=== PATIENT | male | born 1975 | race Caucasian/White ===

== ENCOUNTER 2021-08-12 06:13 | Day surgery (SDC) | payer BC ==
[~2021-08-12] VITALS: Ht 185.4 cm; Wt 107.0 kg
[~2021-08-12 06:13] MED LIST: ASPI-630 PO; CETI10TA74 PO; CLOP75TA PO; DEXT30CA6 PO; HYDROmorphone 2 MG/ML VIAL IVP PRN; IV RINGERS,LACTATED 1000ML 1,000 ML IV SCH; LAMO25TA9 PO; LOPE-101 PO; MORPHINE SULFATE 2 MG/ML INJ. IVP PRN; MULT-496 PO; OLME40TA12 PO; OMEP20TA8 PO; PANT40TA77 PO; PROCHLORPERAZINE 10 MG/2 ML VIAL. IVP PRN; fentaNYL PF VIAL 100 MCG/2 ML VIAL IVP PRN
[2021-08-12 06:52] VITALS: BP 142/81
[2021-08-12] MEDS ORDERED: LIDOCAINE 2% PF 5 ML VIAL. ONE (06:58)
[2021-08-12] MEDS ORDERED: PROPOFOL 10 MG/ML (20ML) VIAL. IV ONE ×2 (06:58→08:29)
[2021-08-12] MEDS ORDERED: fentaNYL PF VIAL 250 MCG/5 ML VIAL ONE (06:59)
[2021-08-12] MEDS ORDERED: MIDAZOLAM HCL/PF 2 MG/2 ML VIAL. ONE (06:59)
[2021-08-12] MEDS ORDERED: ROCURONIUM 50 MG/5 ML VIAL. ONE (07:01)
[2021-08-12] MEDS ORDERED: EPINEPHrine VIAL 30 MG/30 ML VIAL ONE (07:33)
[2021-08-12] MEDS ORDERED: LIDOCAINE 1% Multi-Dose 20 ML VIAL. ONE (07:33)
--- NOTE | 2021-08-12 07:42 | PDOC1 ---
History and Physical Date of Service: DOS: DATE: 08/12/21 TIME: :22 Chief Complaint: Chief Complain: ankle pain History of Present Illness: HPI: 46-year-old male with past medical history of TIA in 2006, hypertension, former smoker for 30 years but quit about a year ago, sleep apnea and GERD who is on- call to the OR for surgery of his ankle. Patient currently denies any fevers, chest pain, abdominal pain, dysuria or hematuria. Past Medical/Surgical History: PMH/PSH: Past medical history: TIMOTEO currently on CPAP, history of TIA in 2006, GERD, hypertension, osteochondritis of the right talus Past surgical history: Bilateral knee scopes and bilateral ACL repair, left shoulder arthroscopy Allergies: Allergies: Coded Allergies: No Known Drug Allergies (Unverified , 08/12/21) Family History: Family History: Reviewed with no relevant findings Social History: Social History: Former soap smoker for 30 years and quit in the summer 2020, denies any alcohol drug abuse Current Medications: Current Medications Current Medications Fentanyl Citrate (Fentanyl 2ml Vial) 25 mcg PRN Q5MIN PRN IVP MILD PAIN 1-3; Start 08/12/21 at 06:00; Stop 08/12/21 at 20:00 Fentanyl Citrate (Fentanyl 2ml Vial) 50 mcg PRN Q5MIN PRN IVP MODERATE PAIN 4- 6; Start 08/12/21 at 06:00; Stop 08/12/21 at 20:00 Morphine Sulfate (Morphine Sulfate) 1 mg PRN Q10MIN PRN IVP SEVERE PAIN 7-10; Start 08/12/21 at 06:00; Stop 08/12/21 at 20:00 Ringer's Solution 1,000 ml @ 30 mls/hr Q24H IV Last administered on 08/12/21at 07:04; Start 08/12/21 at 06:00; Stop 08/12/21 at 17:59 Hydromorphone HCl (Dilaudid) 0.5 mg PRN Q10MIN PRN IVP SEVERE PAIN 7-10, 2nd CHOICE; Start 08/12/21 at 06:00; Stop 08/12/21 at 20:00 Prochlorperazine Edisylate (Compazine) 5 mg PACU PRN PRN IVP NAUSEA, MRX1; Start 08/12/21 at 06:00; Stop 08/12/21 at 20:00 Cefazolin Sodium/ Dextrose 50 ml @ 100 mls/hr 1X PREOP PRN IV PRIOR TO PROCEDURE; Start 08/12/21 at 06:00; Stop 08/12/21 at 18:00 Propofol (Diprivan) 200 mg STK-MED ONCE IV ; Start 08/12/21 at 06:58; Stop 08/12/21 at 06:58; Status DC Lidocaine HCl (Lidocaine Pf 2% Vial) 5 ml STK-MED ONCE .ROUTE ; Start 08/12/21 at 06:58; Stop 08/12/21 at 06:58; Status DC Midazolam HCl (Versed) 2 mg STK-MED ONCE .ROUTE ; Start 08/12/21 at 06:59; Stop 08/12/21 at 06:59; Status DC Fentanyl Citrate (Fentanyl 5ml Vial) 250 mcg STK-MED ONCE .ROUTE ; Start 07/23 10/12 at 06:59; Stop 08/12/21 at 06:59; Status DC Rocuronium Williamson (Zemuron) 50 mg STK-MED ONCE .ROUTE ; Start 08/12/21 at 0 7:01; Stop 08/12/21 at 07:01; Status DC Active Scripts Active Reported Daily Value (Multivitamin) 1 Each Tablet 1 Each PO DAILY Lamotrigine 25 Mg Tablet 75 Mg PO DAILY07 Adderall Xr 30 Mg Capsule (Dextroamphetamine/Amphetamine) 30 Mg Cap.er.24h 30 Mg PO DAILY Pantoprazole Sodium (Pantoprazole Sodium) 40 Mg Tablet.dr 40 Mg PO DAILYAC Benicar (Olmesartan Medoxomil) 40 Mg Tablet 40 Mg PO DAILY Clopidogrel (Clopidogrel Bisulfate) 75 Mg Tablet 75 Mg PO DAILY Aspirin 81 Mg Tab.chew 81 Mg PO DAILY Zyrtec (Cetirizine Hcl) 10 Mg Tablet 10 Mg PO DAILY Omeprazole 20 Mg Tablet. 20 Mg PO DAILY Imodium A-D (Loperamide HCl) 2 Mg Capsule 2 Mg PO PRN PRN ROS: Review of Systems Review of System REVIEW OF SYSTEMS: GENERAL: Denies weakness SKIN: No bruising, hair changes or rashes. EYES: No blurred, double or loss of vision. NOSE AND THROAT: No history of nosebleeds, hoarseness or sore throat. HEART: No history of palpitations, chest pain or shortness of breath on exertion. LUNGS: Denies cough, hemoptysis, wheezing or shortness of breath. GASTROINTESTINAL: Denies changes in appetite, nausea, vomiting, diarrhea or constipation. GENITOURINARY: No history of frequency, urgency, hesitancy or nocturia. NEUROLOGIC: Denies history of numbness, tingling, or tremor. PSYCHIATRIC: No history of panic, anxiety or depression. ENDOCRINE: No history of heat or cold intolerance, polyuria or polydipsia. EXTREMITIES: Denies joint pain, pain on walking or stiffness. Physical Exam: Vital Signs: Vital Signs Date Time Temp Pulse Resp B/P (MAP) Pulse Ox O2 Delivery O2 Flow Rate FiO2 08/12/21 07:01 98.2 96 14 142/81 97 Room Air 98.2 Physcial Exam: GEN: No apparent distress. Alert and oriented HEENT: Normal cephalic, atraumatic, external auditory canals are patent EYES: Extraocular muscles are intact, pupil are equally round and reactive to light and accommodation MUSCULOSKELETAL: Well developed , well nourished, good range of motion ENDOCRINE: No thyromegaly was palpated LYMPHATICS: No cervical chain or axillary nodes were noted HEMATOPOIETIC: No bruising NECK: Supple, no JVD, no thyromegaly was noted LUNGS: Clear to auscultation in all lung mares without rhonchi or wheezing HEART: RRR, S!, S2 present. Peripheral pulses intact, no obvious murmurs noted ABDOMEN: Soft, nontender. Positive bowel sounds, no organomegaly, normal bowel sounds EXTREMITIES: Without clubbing, cyanosis, or edema. Pedal pulses intact. Negative Homans sign NEUROLOGIC: Normal speech and tone. A&O x 3, moves all extremities, no obvious focal deficits PSYCHIATRIC: Normal affect, normal mood. Stable SKIN: No ulcerations or rashes, good skin turgor, no jaundice VASCULAR: Good capillary refill, neurovascular bundle appears to be intact Labs: Labs: No recent labs to review Images: Images Pending ankle x-ray Assessment/Plan Assessment/Plan 46 male coming in for right ankle repair for his osteochondritis of the right talus Admit to the OR for surgery with Kiran Boss score of 0.1% low risk for CO or cardiac arrest Aspirin and Plavix has been held for 1 week Possible nerve block for analgesia will defer to anesthesia and primary surgeon Anticipate for discharge from the PACU Please call hospitalist service for any questions Justifications for Admission Other Justification BENIGNO LE MD Aug 12, 2021 07:42
--- NOTE | 2021-08-12 07:47 | RAD ---
XR EXAM OF ANKLE_RIGHT 3VIEWS History: Reason: PRE OP SURGERY AT 0730 / Spl. Instructions: / History: Technique: 3 views right ankle Comparison: None. Findings: No dislocation. No acute fracture. Mild ankle degenerative changes. Dystrophic calcifications posteri or to the distal tibia. Prominence of the anterior talus, can be seen with anterior ankle impingement morphology. Os trigonum. Impression: 1. Mild right ankle DJD. Electronically signed by: Aries Barton DO (08/12/2021 7:45 AM) [id number]
[2021-08-12] MEDS ORDERED: DEXAMETHASONE SOD PHOS 4 MG/ML VIAL ONE (07:59)
[2021-08-12] MEDS ORDERED: ONDANSETRON PF 4 MG/2 ML VIAL. ONE (07:59)
[2021-08-12] MEDS ORDERED: DEXMEDETOMIDINE 200 MCG/2 ML VIAL. IV ONE (08:00)
[2021-08-12] MEDS ORDERED: SEVOFLURANE > 120 MINUTES. IH ONE (08:29)
[2021-08-12] MEDS ORDERED: PHENYLEPHRINE 10 MG/ML VIAL. ONE (08:29)
[2021-08-12] MEDS ORDERED: 0.9 % SODIUM CHLORIDE 20 ML VIAL. IJ ONE (08:31)
[2021-08-12] MEDS ORDERED: HYDROmorphone 2 MG/ML VIAL ONE (08:56)
[2021-08-12] MEDS ORDERED: KETOROLAC 30 MG/ML VIAL. ONE (09:44)
[2021-08-12] MEDS ORDERED: BUPIVACAINE MPF 0.25% 30 ML VIAL. ONE (09:55)
[2021-08-12] MEDS ORDERED: fentaNYL PF VIAL 100 MCG/2 ML VIAL ONE ×2 (10:11→11:17)
--- NOTE | 2021-08-12 10:21 | PDOC4 ---
OPERATIVE NOTE Date: Date: Aug 12, 2021 Pre-Op Diagnosis: Right ankle arthritis, ATFL insufficiency, grade 1 OCD lesion with intact cartilage at the central lateral talar dome Post-Op Diagnosis: Same as above Procedure Performed: Right ankle scope with exostectomy, extensive debridement, Brostrm Reece, retrograde drilling and backfilling with BMA and DBM allograft Surgeon: Jacob Cardoso DPM Anesthesia Type: General Blood Loss: 5 cc Specimans Obtained: None Findings: Extensive ankle synovitis, proliferative exocytosis at the distal tibial plafond and dorsal talar neck/head, remodeled avulsion fracture/soft tissue ossification along the ATFL. There was no talar dome cartilage delamination or deficit upon probing and examination. Complications: None Operative Note: Under mild sedation, patient was brought into the operating room and placed on the operating table in the supine position. A formal timeout was performed to confirm patient's identity, procedure and procedure site. Following general anesthesia and preoperative IV antibiotics, a well-padded right thigh tourniquet was applied. Patient was then positioned in a lazy lateral decubitus position with an aggressive ipsilateral hip bump. The right lower extremity was then scrubbed, prepped and draped using aseptic techniques. The right lower extremity was exsanguinated and the tourniquet was inflated to 250 millimercury. Attention was directed to the anterior aspect of the right ankle where a stab incision was created over the medial gutter. This incision was bluntly dissected and dilated with a hemostat. Blunt obturator was slided through the cannula and introduced to the ankle joint. An obturator was withdrawn and the camera was inserted. Primary survey was performed. A 4 mm, 30 degree camera was then utilized to localize the lateral incision. Again a stab incision was created over the lateral gutter. Blunt dissection was carried out down to the capsule which was penetrated. A cannula and blunt obturator were then int roduced laterally into the joint. The obturator was removed and a 3.5mm shaver was inserted into the joint. At this time, we noted a significant synovitis invaginated into the ankle. There were mild to moderate proliferative exostosis to the distal tibial plafond and dorsal talar neck/head at the medial aspect of the ankle joint. Using a high-speed 3.5 millimeter shaver, all the aforementioned soft tissue invagination was debrided with care to protect the dorsal superficial neurovascular bundle. A 3.5 mm bur was used to excise and debride the exostosis until passive ankle range of motion was free from impingement. Then a final joint survey was unremarkable for OCD/cartilage deficit, or anterior ankle joint impingement. Under intraoperative x-ray, a 2.4 mm guidepin was introduced from the distal medial malleolus aiming towards the central lateral talar dome with care not to puncture through the articular cartilage. Then 1 cc of allograft DBM was mixed with 1 cc of PRP centrifuged from 40 cc of whole blood from the upper extremity IV line. Then an 11-gauge cannula was advanced into the bone marrow lesion and 1.5 cc of a PRP and DBM mixture was backfilled into the lateral talar dome lesion site. Surveillance ankle scope was insignificant for cartilage blowout or iatrogenic OCD lesion. Then the surgical sites were closed with simple interrupted 4-0 nylon. The attention was directed to the lateral distal ankle where a linear incision was made over the course of the ATFL extending from the distal lateral fibula towards the fourth metatarsal base, measures approximately 3 cm. Using a combination of sharp and blunt dissection with care to protect and retract all the neurovascular bundles, the retinaculum and joint capsule was visualized. From the sinus tarsi, a blunt mosquito clamp was used to establish the course and trajectory of the lateral ankle gutter. The Bovie was used to incise the lateral ankle capsule while protecting the underlying cartilage. After the joint was visualized, we noticed cartilage diminution without fibrillation to the anterior lateral talar dome shoulder measures approximately 0.6 x 0.8 cm. Subchondral drilling was performed with 0.062 inch K wire, x6 with remarked underlying bone marrow extravasation. Then the junction of the talar neck and head was visualized and drilled for 4.75 mm Arthrex suture anchor. Precaution and intraoperative x-ray were taken to assure the anchor was placed extra- articular from the subtalar joint and ankle joint. Then the suture tapes were transferred with a free needle to extra-capsular. Then the attention was directed to the distal anterior fibula. The periosteum was gently elevated to establish the landmarks for 0.9 mm DX Fibertak. Care and precaution were taken to assure the placement of the Fibertaks were extra articular. Then the 4 armed fiberwires from the 2 fibertaks were used to repair and tighten the lateral ankl e capsule while the ankle was held maximally dorsiflexed and everted. Then the swivel lock was used to secure the fiber tapes from the talar component to the anterior distal fibula. Care and precaution to place the swivel lock extra- articular and away from the fibertaks, to follow recreate the anatomical trajectory of the ATFL, to assure proper tensioning with ankle at neutral and 10 degrees plantar flexed. After proper placement of the swivel lock, satisfactory fiber tape tension was noticed without either overtightening or under tightening. Passive ankle range of motion was free from popping, catching. Repeated anterior drawer test was negative. The extensor retinaculum was reinforced with the 4 armed fiberwires as part of the Reece repair. Extra Fib erWire sutures and fiber tapes were cut with a #15 blade. The surgical sites was irrigated with copious saline solution. The surgical site was closed with a combination of 3-0 Vicryl, 4 Monocryl and 4 nylon. 10 cc of 0.25% Marcaine plain was infiltrated into the surgical site for postoperative augmentation. The surgical site was covered with xeroform, 4 x 4, ABD and soft roll. The right lower extremity was immobilized in a well-padded Garcia compression splint with ankle held in near neutral position. Tourniquet was deflated and adequate digital perfusion was noted. Patient tolerated anesthesia and surgery well with vital signs stable and neurovascular status intact. Patient was then transferred to PACU for continuous recovery, pending right ankle x-ray 3 view. JACOB CARDOSO DPM Aug 12, 2021 10:21
[2021-08-12] MEDS ORDERED: ACETAMINOPHEN 325 MG TABLET. PO ONE (10:30)
[2021-08-12] MEDS ORDERED: oxyCODONE/APAP 5/325 1 TAB TABLET PO ONE (10:30)
[2021-08-12] MEDS ORDERED: GABAPENTIN 100 MG CAPSULE. PO ONE (10:30)
[2021-08-12] MEDS ORDERED: HYDR-2759 PO (10:45)
[2021-08-12] MEDS ORDERED: GABA-585 PO (10:46)
[2021-08-12] MEDS ORDERED: ACET500T68 PO (10:47)
[2021-08-12] MEDS ORDERED: IBUP-1007 PO (10:47)
--- NOTE | 2021-08-12 10:58 | RAD ---
EXAM: Right ankle, 3 views. HISTORY: Fracture. COMPARISON: 08/12/2021 FINDINGS: 3 views of the right ankle are obtained. There is external casting material which limits ev aluation of bony detail. The ankle mortise is intact. There is no osteochondral lesion. There is diff use soft tissue swelling. There is degenerative tibiotalar spurring. There is a small osseous excresc ence along the anterior talus. IMPRESSION: External casting material limiting evaluation of bony and soft tissue detail. Soft tissue swelling. Mild tibiotalar osteoarthritis. Electronically signed by: Shelbi Arceo MD (08/12/2021 10:56 AM) [id number]
[2021-08-12] MEDS ORDERED: ALBUTEROL SULFATE 2.5 MG/3 ML NEBU. ONE (11:04)
[2021-08-12] MEDS ORDERED: MORPHINE SULFATE 2 MG/ML INJ. ONE (11:05)
[2021-08-12] MEDS ORDERED: ALBUTEROL SULFATE 2.5 MG/3 ML NEBU. NEB ONE (11:15)
[2021-08-12 11:25] VITALS: BP 148/86
== END 2021-08-12 12:30 | disposition home or self-care (01) ==
LOC: SURG 06:13
PROVIDERS: ATTEND Podiatrist
DX: M19.071 Primary osteoarthritis, right ankle and foot (principal); I10 Essential (primary) hypertension; G47.30 Sleep apnea, unspecified; K21.9 Gastro-esophageal reflux disease without esophagitis; F41.9 Anxiety disorder, unspecified; F32.9 Major depressive disorder, single episode, unspecified; M19.90 Unspecified osteoarthritis, unspecified site; Z87.891 Personal history of nicotine dependence; Z79.82 Long term (current) use of aspirin; Z79.899 Other long term (current) drug therapy; Z98.890 Other specified postprocedural states; Z72.89 Other problems related to lifestyle
CPT/HCPCS: 27698; 29891; 29892; 29898; 73610; 82962; J0171; J0690; J1100; J1170; J1885; J2250; J2370; J2405; J2704; J3010; J3490; J7613; A4930; A6253; C1713; J2270

== ENCOUNTER → 2021-09-09 | Outpatient (CLI) | payer BC ==
[2021-08-12 11:25] VITALS: BP 148/86
[~2021-09-09] MED LIST changes: +ACET500T68 PO; +GABA-585 PO; +HYDR-2759 PO; -HYDROmorphone 2 MG/ML VIAL IVP PRN; +IBUP-1007 PO; -IV RINGERS,LACTATED 1000ML 1,000 ML IV SCH; -MORPHINE SULFATE 2 MG/ML INJ. IVP PRN; -PROCHLORPERAZINE 10 MG/2 ML VIAL. IVP PRN; -fentaNYL PF VIAL 100 MCG/2 ML VIAL IVP PRN
--- NOTE | 2021-09-09 08:27 | KCIC ---
EXAM: ULTRASOUND ABDOMEN LIMITED CLINICAL HISTORY: Elevated liver enzymes COMPARISON: None available. TECHNIQUE: Limited ultrasound examination of the right upper quadrant of the abdomen was performed. FINDINGS: The pancreas is not well-visualized due to bowel gas. The liver length measures 18.8 cm. Mild increas ed echogenicity identified in the liver likely hepatic steatosis. The gallbladder is mildly distended . The gallbladder wall thickness is 1.7 mm. The right kidney measures 10.8 x 5.6 x 5.4 cm. The aorta, IVC are not well-visualized due to bowel gas. IMPRESSION: Mild hepatomegaly with hepatic steatosis. Electronically signed by: Boston Pelayo MD (09/09/2021 8:25 AM) [id number]
== END ==
LOC: KCIC US 07:59
PROVIDERS: ATTEND Family Medicine
DX: K76.0 Fatty (change of) liver, not elsewhere classified (principal); R74.8 Abnormal levels of other serum enzymes
CPT/HCPCS: 76705